=== PATIENT | female | born 1980 | race Asian ===

== ENCOUNTER 2017-11-18 22:17 | Inpatient (IN) | payer OTHER ==
[~2017-11-18] VITALS: Ht 162.6 cm; Wt 68.0 kg
[~2017-11-18 22:17] MED LIST: VITATRUE COMBO1 EACH PO; [UNRECOGNIZED DRUG - OTHER] PO
[2017-11-19 10:32] VITALS: BP 109/76
[2017-11-19 11:21] LABS: BASOPHIL (%) 0.3 % (0-1); EOSINOPHIL (%) 2.3 % (0-5); EOSINOPHIL COUNT 0.2 K/uL (0-0.3); HEMATOCRIT 35.2 % (36.0-46.0); HEMOGLOBIN 12.3 G/DL (11.9-15.5); IMMATURE GRANULOCYTE (%) 0.7 % (0.0-0.7); LYMPHOCYTE (%) 19.7 % (15-42); LYMPHOCYTE COUNT 1.8 K/uL (1.0-2.8); MCH 32.4 PG (29.0-34.0); MCHC 34.9 G/DL (30.0-36.0); MCV 92.6 FL (83-99); MONOCYTE (%) 6.7 % (3-12); MONOCYTE COUNT 0.6 K/uL (0-0.8); NEUTROPHIL (%) 70.3 % (45-76); NEUTROPHIL COUNT 6.3 K/uL (1.8-6.4); PLATELET COUNT 243 K/uL (156-360); RBC DIS.WIDTH-CV 13.1 % (11.8-14.6); RBC DIS.WIDTH-SD 44.7 % (39-53)
[2017-11-19 12:10] LABS: AMPHETAMINE NEGATIVE (500 ng/mL); BARBITURATES NEGATIVE (200 ng/mL); BENZODIAZEPINES NEGATIVE (150 ng/mL); BUPRENORPHINE NEGATIVE (10 ng/mL); COCAINE NEGATIVE (150 ng/mL); METHADONE NEGATIVE (200 ng/mL); METHAMPHETAMINE NEGATIVE (500 ng/mL); OPIATES (MORPHINE) NEGATIVE (100 ng/mL); OXYCODONE NEGATIVE (100 ng/mL); PHENCYCLIDINE NEGATIVE (25 ng/mL); PROPOXYPHENE NEGATIVE (300 ng/mL); THC CANNABINOIDS NEGATIVE (50 ng/mL); TRICYCLIC ANTIDEPRESSANTS NEGATIVE (300 ng/mL)
[2017-11-19 13:04] VITALS: BP 113/62
[2017-11-19 15:41] LABS: SITE CORD
[2017-11-19 15:42] LABS: BASE EXCESS 0.5 mEq/L (-3 to +3); BICARBONATE 28.4 mEq/L (22-26); COMMENTS - BLOOD GASES ARTERIAL; PCO2 56 mm Hg (35-45); PO2 30 mm Hg (80-100); pH 7.29 (7.35-7.45)
[2017-11-19 15:43] LABS: COMMENTS - BLOOD GASES VENOUS; SITE CORD
[2017-11-19 15:49] LABS: BICARBONATE 24.3 mEq/L (22-26); PCO2 41 mm Hg (35-45); PO2 < 30 mm Hg (80-100); pH 7.38 (7.35-7.45)
[2017-11-19 15:50] LABS: BASE EXCESS -0.8 mEq/L (-3 to +3)
[2017-11-19 17:57] VITALS: BP 106/53
[2017-11-19 19:08] VITALS: BP 106/65
[2017-11-19 21:10] VITALS: BP 105/63
[2017-11-19 22:53] VITALS: BP 102/58
[2017-11-20 01:17] VITALS: BP 106/62
[2017-11-20 02:39] VITALS: BP 101/63
[2017-11-20 06:12] LABS: BASOPHIL (%) 0.1 % (0-1); EOSINOPHIL (%) 0.3 % (0-5); EOSINOPHIL COUNT 0.1 K/uL (0-0.3); HEMATOCRIT 35.5 % (36.0-46.0); IMMATURE GRANULOCYTE (%) 0.4 % (0.0-0.7); LYMPHOCYTE (%) 12.3 % (15-42); LYMPHOCYTE COUNT 1.8 K/uL (1.0-2.8); MCH 31.7 PG (29.0-34.0); MCHC 33.8 G/DL (30.0-36.0); MCV 93.7 FL (83-99); NEUTROPHIL (%) 79.9 % (45-76); NEUTROPHIL COUNT 11.4 K/uL (1.8-6.4); PLATELET COUNT 251 K/uL (156-360); RBC DIS.WIDTH-CV 12.9 % (11.8-14.6); RBC DIS.WIDTH-SD 44.2 % (39-53); RED BLOOD COUNT 3.79 M/uL (3.80-5.20); WHITE BLOOD COUNT 14.3 K/uL (4.1-10.2)
[2017-11-20 19:04] VITALS: BP 95/62
[2017-11-20 22:26] VITALS: BP 100/57
[2017-11-21 02:13] VITALS: BP 94/63
[2017-11-21 22:10] VITALS: BP 104/68
[2017-11-22] MEDS ORDERED: IBUPROFEN800 MG PO (07:43)
[2017-11-22] MEDS ORDERED: DOCUSATE SODIU100 MG PO (07:43)
[2017-11-22] MEDS ORDERED: ENDOCET 5-3251 EACH PO (07:43)
== END 2017-11-22 14:46 | disposition home or self-care (01) | DRG 766 ==
LOC: ENRESERV 22:17 → CANRESERV 22:17 → ENRESERV 22:18 → CANRESERV 22:18 → 2WEST 11-19 10:04 → 2SOUTH 11-19 10:49 → 2WEST 11-22 14:46
PROVIDERS: Obstetrics & Gynecology
DX: O34.211 Maternal care for low transverse scar from previous cesarean delivery (principal); Z3A.39 39 weeks gestation of pregnancy; Z37.0 Single live birth; Z30.2 Encounter for sterilization; O32.2XX0 Maternal care for transverse and oblique lie, not applicable or unspecified; O32.1XX0 Maternal care for breech presentation, not applicable or unspecified
CPT/HCPCS: 36600; 85025; 86850; 86900; 86901; 88302; J0690; J1100; J1885; J2274; J2405; J2765; J3010; J7120; S0020